=== PATIENT | female | born 1990 | race Caucasian/White ===

== ENCOUNTER 2017-04-25 18:01 | Emergency (ER) | payer OTHER ==
[2017-04-25 18:08] VITALS: BP 132/76
--- NOTE | 2017-04-25 18:26 | ED Physician Documentation ---
History of Present Illness - Stated complaint Stated Complaint: ELECTRIC SHOCK - Chief complaint Chief Complaint: General - History obtained from History obtained from: Patient, Friend - History of Present Illness Timing: Today Pain level max: 4 Pain level now: 0 Improved by: nothing Worsened by: nothing - Additonal information Additional information: Patient was at work today when she was shocked in the left pinky finger by approximately 0-100 mA, states that she felt a sharp pain. Did not lose consciousness. Has had no chest pain, shortness of breath. No burn. Feels asymptomatic. Is not . Review of Systems Cardiac: denies: Chest pain / pressure, Palpitations Respiratory: denies: Dyspnea, Wheezing GI: denies: Nausea, Vomiting, Diarrhea : denies: Now EGA Musculoskeletal: denies: Neck pain, Back pain Neurologic: denies: Focal weakness, Numbness, Headache PD PAST MEDICAL HISTORY - Past Medical History Past Medical History: No - Past Surgical History Past Surgical History: No - Present Medications Home Medications: Ambulatory Orders Medication Instructions Recorded Confirmed No Known Home Medications [No 04/25/17 04/25/17 Known Home Medications] - Allergies Allergies/Adverse Reactions: Allergies Allergy/AdvReac Type Severity Reaction Status Date / Time No Known Drug Allergies Allergy Verified 04/25/17 18:08 - Social History Does the pt smoke?: No Smoking Status: Never smoker Does the pt drink ETOH?: Yes Does the pt have substance abuse?: No - Immunizations Immunizations are current?: Yes PD ED PE NORMAL - Vitals Vital signs reviewed: Yes - General General: Alert and oriented X 3, No acute distress - HEENT HEENT: Moist mucous membranes - Neck Neck: Supple, no meningeal sign - Cardiac Cardiac: RRR, Strong equal pulses - Respiratory Respiratory: No respiratory distress, Clear bilaterally - Derm Derm: Warm and dry - Extremities Extremities: Other (normal exam of the B hands. no electrical kaye) - Neuro Neuro: Alert and oriented X 3 - Psych Psych: Normal mood, Normal affect Results - Vitals Vitals: Vital Signs - 24 hr 04/25/17 18:06 Temperature 36.6 C Heart Rate 86 Respiratory 18 Rate Blood Pressure 132/76 H O2 Saturation 100 Oxygen O2 Source Room air - EKG (time done) 1820 Rate: Rate (enter#) (84) Rhythm: NSR [place]: Normal Intervals: Normal CO (borderline short CO) QRS: Normal Ischemia: Normal ST segments Computer interpretation: Agree with computer PD MEDICAL DECISION MAKING - ED course Complexity details: reviewed results, considered differential, d/w patient ED course: Patient is a 26-year-old female who was electrocuted at work tonight. No acute findings on EKG. Asymptomatic here. Will have her follow-up with her doctor for further evaluation and care. Patient counseled regarding signs and symptoms for which I believe and urgent re-evaluation would be necessary. Patient with good understanding of and agreement to plan and is comfortable going home at this time This document was made in part using voice recognition software. While efforts are made to proofread this document, sound alike and grammatical errors may occur. Departure - Departure Disposition: 01 Home, Self Care Clinical Impression: Electric shock Qualifiers: Encounter type: initial encounter Qualified Code(s): T75.4XXA - Electrocution, initial encounter Condition: Good Instructions: ED Burn Electrical Follow-Up: Toni Darden MD [Primary Care Provider] - As Needed Comments: Return if you worsen. Discharge Date/Time: 04/25/17 18:50
== END 2017-04-25 18:50 | disposition home or self-care (01) ==
LOC: ED 18:01
DX: T75.4XXA Electrocution, initial encounter (principal); W86.8XXA Exposure to other electric current, initial encounter; Y99.0 Civilian activity done for income or pay
CPT/HCPCS: 93005; 99282; 99283